=== PATIENT | female | born 1985 | race Two or more races ===

== ENCOUNTER 2019-08-12 16:40 | Emergency (ER) | payer SELFPAY ==
[~2019-08-12] VITALS: Ht 162.6 cm; Wt 70.5 kg
[2019-08-12 17:42] VITALS: BP 125/90
--- NOTE | 2019-08-12 17:43 | NUR ---
THIS IS A 33 YO FEMALE COMING IN FOR "I HAVE A CLOTTING DISORDER, I HAVENT BEEN ON MY MEDS BECAUSE I MOVED FROM [place]. I THINK THAT MIGHT BE WHAT CAUSED MY EAR INFECTION, I CANT HEAR AND I'M HAVING A LOT OF PAIN". PATIENT HAS RIGHT EAR PAIN, AND TENDER TO PALPATION ALONG RIGHT SIDE OF NECK RATED 7/10. PATIENT HAS HX FACTOR 5 CLOTTING DISORDER AND NORMALLY TAKES ELOQUIS, HAS BEEN OFF THIS MED FOR 2-3 WEEKS DUE TO MOVING AND UNABLE TO GET TO PCP UNTIL OCTOBER. PATIENT STATES THAT IS WHEN THESE SX STARTED. PLACED ON FIELD CROP [employer], SINUS TACHY AT 103, VSS, NAD, CALL LIGHT IN REACH, DENIES NEEDS AT THIS TIME.
[2019-08-12] MEDS ORDERED: AMOXICILLIN 500 MG CAPSULE ONE (17:50)
[2019-08-12] MEDS ORDERED: ACETAMINOPHEN 500 MG TABLET ONE (17:50)
[2019-08-12] MEDS ORDERED: APIXABAN 5 MG TABLET PO ONE (18:00)
[2019-08-12] MEDS ORDERED: ACETAMINOPHEN 500 MG TABLET PO ONE (18:00)
[2019-08-12] MEDS ORDERED: AMOXICILLIN 500 MG CAPSULE PO ONE (18:00)
--- NOTE | 2019-08-12 18:05 | NUR ---
PATIENT MEDICATED PER EMAR, TOLERATED WELL. PATIENT AMBULATED WITH STEADY GAIT TO RESTROOM.
== END 2019-08-12 18:21 | disposition home or self-care (01) ==
LOC: ED 18:15
DX: I26.99 Other pulmonary embolism without acute cor pulmonale (principal); H66.91 Otitis media, unspecified, right ear; I10 Essential (primary) hypertension; Z72.89 Other problems related to lifestyle
CPT/HCPCS: 99284